=== PATIENT | male | born 2000 | race African-American/Black ===

== ENCOUNTER 2018-11-06 20:34 | Emergency (ER) | payer MEDICAID, OTHER ==
[~2018-11-06] VITALS: Ht 190.5 cm; Wt 69.7 kg
[2018-11-06 20:44] VITALS: BP 111/71
--- NOTE | 2018-11-06 22:20 | NUR ---
TECH AT BEDSIDE FOR SPLINT APPLICATION. D/C INSTRUCTIONS ALREADY REVIEWED WITH PT.
--- NOTE | 2018-11-06 22:32 | NUR ---
Patient/Caregiver given discharge instructions and they have confirmed that they understand the instructions. Patient ambulatory with steady gait.
== END 2018-11-06 22:33 | disposition home or self-care (01) ==
LOC: ED 22:06
DX: S62.354A Nondisplaced fracture of shaft of fourth metacarpal bone, right hand, initial encounter for closed fracture (principal); S62.356A Nondisplaced fracture of shaft of fifth metacarpal bone, right hand, initial encounter for closed fracture; X58.XXXA Exposure to other specified factors, initial encounter; Y93.89 Activity, other specified; Y92.009 Unspecified place in unspecified non-institutional (private) residence as the place of occurrence of the external cause; Y99.8 Other external cause status
CPT/HCPCS: 29125; 99283